=== PATIENT | female | born 1940 | race Caucasian/White ===

== ENCOUNTER → 2017-06-14 13:03 | Outpatient (CLI) | payer MEDICARE, BC | END | disposition home or self-care (01) | LOC: D.CT 13:00 | DX: K59.09 Other constipation (principal) ==

== ENCOUNTER 2018-01-25 06:05 | Emergency (ER) | payer MEDICARE, BC ==
[~2018-01-25] VITALS: Ht 157.5 cm; Wt 65.9 kg
[2018-01-25 06:07] VITALS: Ht 157.5 cm; Wt 65.9 kg
[2018-01-25] MEDS ORDERED: SYNTHROID125 MCG PO (06:10)
[2018-01-25] MEDS ORDERED: SPIRIVA18 MCG INH (06:10)
[2018-01-25] MEDS ORDERED: CARTIA XT240 MG PO (06:10)
[2018-01-25] MEDS ORDERED: PROVENTIL/2.5 MG/3 M (06:10)
[2018-01-25] MEDS ORDERED: PRINIVIL20 MG PO (06:11)
[2018-01-25] MEDS ORDERED: CARDURA2 MG PO (06:11)
[2018-01-25] MEDS ORDERED: COMBIVENT RESPIM4 GM INH (06:11)
[2018-01-25] MEDS ORDERED: VENTOLIN HFA18 GM (06:11)
[2018-01-25 07:00] LABS: BASOPHILS 0.1 % (0-2); EOSINOPHILS 0.9 % (0-7); HEMATOCRIT 34.8 % (36.0-48.0); HEMOGLOBIN 11.1 g/dL (12-16); IMMATURE GRANULOCYTES 0.1 % (0-5); LYMPHOCYTES 5.4 % (15-50); MCH 31.4 pg (26.0-34.0); MCHC 31.9 g/dL (31.0-37.0); MCV 98.3 fL (80.0-100.0); MEAN PLATELET VOLUME 8.8 fL (7.4-10.4); MONOCYTES 13.4 % (2-11); NEUTROPHILS 80.1 % (40-80); PLATELET COUNT 195 10x3/uL (130-400); RBC 3.54 10x6/uL (4.00-5.40); RDW 11.7 % (11.5-14.5); WBC 6.7 10x3/uL (4.8-10.8)
[2018-01-25 07:33] LABS: ALBUMIN 3.1 g/dL (3.4-5.0); ALKALINE PHOSPHATASE 60 U/L (46-116); ALT (SGPT) 18 U/L (10-68); BILIRUBIN - TOTAL 0.22 mg/dL (0.2-1.3); CALC OSMOLALITY 266 mosm/kg (275-300); CALCIUM 9.2 mg/dL (8.5-10.1); CHLORIDE - SERUM 91 mmol/L (98-107); CREATININE - SERUM 0.4 mg/dL (0.6-1.3); GLUCOSE 142 mg/dL (74-106); POTASSIUM - SERUM 5.1 mmol/L (3.5-5.1); PRO BNP 204 pg/mL (0-450); PROTEIN - SERUM 6.6 g/dL (6.4-8.2); SODIUM 133 mmol/L (136-145); UREA NITROGEN 9 mg/dL (7-18); eGFR NON AFRICAN AMERICAN > 90 mL/min (90-120)
[2018-01-25 07:35] LABS: CARBON DIOXIDE 43.5 mmol/L (21.0-32.0)
[2018-01-25] MEDS ORDERED: NORCO 7.5/325 T1 TA1 PO (09:23)
[2018-01-25 10:00] VITALS: BP 144/56
== END 2018-01-25 10:00 | disposition home or self-care (01) ==
LOC: D.ER 06:05
PROVIDERS: Family Medicine
DX: S22.32XA Fracture of one rib, left side, initial encounter for closed fracture (principal); W18.30XA Fall on same level, unspecified, initial encounter; Y93.89 Activity, other specified; Y92.019 Unspecified place in single-family (private) house as the place of occurrence of the external cause; J44.9 Chronic obstructive pulmonary disease, unspecified; Z99.81 Dependence on supplemental oxygen